=== PATIENT | female | born 1965 | race Caucasian/White ===

== ENCOUNTER → 2016-03-23 | Outpatient (CLI) | payer BC ==
--- NOTE | 2016-03-24 22:27 | MR ---
EXAMINATION TYPE: MR cervical spine wo con DATE OF EXAM: 03/23/2016 3:44 PM COMPARISON: NONE HISTORY: 50-year-old female with radiculopathy of the cervical region. TECHNIQUE: Multiplanar, multisequence images of the cervical spine were acquired. FINDINGS: No craniocervical junction abnormality, predental space widening, or prevertebral soft tissue swellin g. There is reversal of the normal cervical lordosis but with preserved alignment. No suspicious bone marrow replacement. Multilevel mild degenerative disc disease characterized by disc desiccation and disc bulging. Some ligamentum flavum thickening seen at C6-C7 and scattered facet degenerative change. At C2-C3, no spinal canal or neural foraminal stenosis. At C3-C4, mild right paracentral disc bulge with mild facet arthropathy but no spinal canal or neurof oraminal stenosis. At C4-C5, there is broad-based disc bulge with a left-sided uncovertebral joint arthropathy and bilat eral facet degenerative change. There is prominent abutment and slight indentation of the ventral cor d but without significant spinal canal or neuroforaminal stenosis. At C5-C6, there is broad-based disc bulge with left-sided uncovertebral joint and bilateral facet art hropathy. Changes result in mild left neuroforaminal stenosis. There is minimal ventral indentation o f the thecal sac without significant spinal canal stenosis. At C6/C7, there is left paracentral broad-based disc protrusion with a bilateral facet degenerative c hange. Changes mildly narrow the left neuroforamen. Additional ligamentum flavum thickening. There is dorsal and ventral impression on the thecal sac without significant spinal canal stenosis. At C7-T1, there is facet degenerative change without significant spinal canal or neuroforaminal steno sis. Normal course and signal intensity of the cervical cord. No prevertebral or paravertebral soft tissue abnormality seen. IMPRESSION: 1. Mild multilevel degenerative disc disease and scattered facet arthropathy. 2. Reversal of the normal cervical lordosis. 3. Largest disc bulge at C4-C5 abuts and mildly indents the ventral cervical cord but does not cause any significant spinal canal stenosis or cord compression. 4. Additional disc bulges indenting the thecal sac but again, not causing any significant spinal steve l stenosis. 5. Mild left-sided neural foraminal stenoses at C5-C6 and C6-C7. No high-grade foraminal compromise s een.
== END | disposition home or self-care (01) ==
LOC: RADMRIMAIN 15:14
PROVIDERS: ATTEND Family Medicine
DX: M99.71 Connective tissue and disc stenosis of intervertebral foramina of cervical region (principal); M50.121 Cervical disc disorder at C4-C5 level with radiculopathy; M50.10 Cervical disc disorder with radiculopathy, unspecified cervical region; M46.92 Unspecified inflammatory spondylopathy, cervical region
CPT/HCPCS: 72141

== ENCOUNTER → 2016-04-20 | Outpatient (CLI) | payer BC ==
[2016-04-20 15:16] LABS: Basophils % (A) 0 %; CH 30.1; CHCM 33.1; Eosinophils # (A) 0.1 k/uL (0-0.7); Eosinophils % (A) 2 %; HCT 35.7 % (34.0-46.0); HDW 2.88; HGB 12.1 gm/dL (11.4-16.0); Luc # (Auto) 0.16; Luc % (Auto) 3; Lymphocytes # (A) 2.1 k/uL (1.0-4.8); Lymphocytes % (A) 35 %; MCH 30.9 pg (25.0-35.0); MCHC 33.8 g/dL (31.0-37.0); MCV 91.4 fL (80.0-100.0); Mean Platelet Volume 7.4; Monocytes # (A) 0.3 k/uL (0-1.0); Monocytes % (A) 6 %; Neutrophils # (A) 3.2 k/uL (1.3-7.7); Neutrophils % (A) 54 %; RBC 3.91 m/uL (3.80-5.40); RDW 13.8 % (11.5-15.5); WBC 5.8 k/uL (3.8-10.6); WBC (Perox) 6.12
== END | disposition home or self-care (01) ==
LOC: LABPAT 14:48
PROVIDERS: ATTEND Obstetrics & Gynecology
DX: Z01.812 Encounter for preprocedural laboratory examination (principal)
CPT/HCPCS: 36415; 85025

== ENCOUNTER 2016-04-29 06:25 | Day surgery (SDC) | payer BC ==
[2016-04-26 13:02] VITALS: BMI 29.5
--- NOTE | 2016-04-28 17:00 | P.HPOB ---
History of Present Illness H&P Date: 04/28/16 Chief Complaint: Dysfunctional uterine bleeding and abnormal endometrial thickening. This patient is a pleasant 50-year-old 2 para 2 female who initially presented to me in February in referral from Dr. Soto for abnormal menstrual bleeding. Patient states that she had bleeding since September of last year sometimes on a daily basis. At the time she had not had an exam or Pap smear in about 7 years. I did order an ultrasound which showed the endometrium to be thickened at 1.5 cm and somewhat heterogeneous. Patient now presents for hysteroscopy and D&C for further evaluation. She and I did discuss possible endometrial ablation however she was undecided at the time of this dictation as to whether she wanted that procedure. Patient now presents for hysteroscopy D& C and possible endometrial ablation. Review of Systems Constitutional: Denies chills, Denies fever Eyes: denies blurred vision, denies pain Ears, nose, mouth and throat: Denies headache, Denies sore throat Cardiovascular: Denies chest pain, Denies shortness of breath Respiratory: Denies cough Gastrointestinal: Denies abdominal pain, Denies diarrhea, Denies nausea, Denies vomiting Genitourinary: Reports as per HPI, Reports abnormal vaginal bleeding, Denies dysuria, Denies hematuria Menstruation: Reports as per HPI Musculoskeletal: Denies myalgias Neurological: Denies numbness, Denies weakness Psychiatric: Denies anxiety, Denies depression Past Medical History Additional Past Medical History / Comment(s): Vaginal bleeding since September 2015, otherwise states no other medical problems. History of Any Multi-Drug Resistant Organisms: None Reported Additional Past Surgical History / Comment(s): [place] teeth Additional Past Anesthesia/Blood Transfusion Reaction / Comment(s): Has only had wisdom teeth removed. Past Psychological History: No Psychological Hx Reported Smoking Status: Former smoker Past Alcohol Use History: Rare Additional Past Alcohol Use History / Comment(s): Quit smoking 29 years go. Past Drug Use History: None Reported - Past Family History Mother Family Medical History: No Reported History Medications and Allergies Home Medications Medication Instructions Recorded Confirmed Type Ascorbic Acid/Multivit-Min 1 dose PO DAILY 04/26/16 04/26/16 History [Emergen-C 1,000 mg Variety Pk] Allergies Allergy/AdvReac Type Severity Reaction Status Date / Time No Known Allergies Allergy Verified 04/26/16 13:09 Exam - OBG Physical Exam Abdomen: bowel sounds normal, no diffuse tenderness, no bruit present, no guarding noted, no hepatomegaly, no splenomegaly, no mass Vulva: both: normal Vagina: normal moisture Cervix: no lesion, no discharge Uterus: normal size, normal contour Adnexa: both: normal Results Transvaginal ultrasound was done on March 09 which showed the endometrium to be 1.5 cm and heterogeneous. There was a small 1.3 cm fibroid. Assessment and Plan (1) Dysfunctional uterine bleeding Narrative/Plan: This is a pleasant 50-year-old 2 para 2 female with dysfunctional uterine bleeding and endometrial thickening on ultrasound. Plan is hysteroscopy and D&C for further evaluation. Patient and I did discuss possible endometrial ablation in the office however was undecided at the time of of this dictation as to whether she would want that done and she told me she would decide the morning of surgery. If the patient desires we will proceed with NovaSure endometrial ablation as well. Patient does understand the risks of the surgeries including risks of infection, bleeding, possible uterine perforation. Patient also understands if we do an endometrial ablation there is a risk of thermal injury. All the patient's questions are answered and a written consent is obtained. Status: Acute
[~2016-04-29 06:25] MED LIST: DEXAMETHASONE SOD PHOSPHATE 10 MG/ML 1 ML VIAL IV ONE; HYDROmorphone 1 MG/ML 1 ML SYRINGE IVP PRN; LACTATED RINGERS 1,000 ML IV SCH; MIDAZOLAM 2 MG/2 ML VIAL IV PRN; ONDANSETRON 4 MG/2 ML VIAL IVP ONE; Pre Op ABX Message 1 EACH MISC MISCELLANE ONE
[2016-04-29] MEDS ORDERED: LIDOCAINE 1% 20 ML VIAL (10MG/ML) FOR IV START SQ ONE (06:50)
[2016-04-29] MEDS ORDERED: LIDOCAINE 1% INJ 10MG/ML (20 ML MDV) ONE (07:19)
[2016-04-29] MEDS ORDERED: fentaNYL (PF) 50 MCG/ML 2 ML AMP ONE (07:19)
[2016-04-29] MEDS ORDERED: KETOROLAC 30 MG/ML 1 ML VIAL ONE (07:19)
[2016-04-29] MEDS ORDERED: MIDAZOLAM 2 MG/2 ML VIAL ONE (07:19)
[2016-04-29] MEDS ORDERED: PROPOFOL 10 MG/ML 20 ML VIAL IV ONE (07:19)
--- NOTE | 2016-04-29 07:19 | P.PN ---
Progress Note - Text I discussed with the patient preoperatively about having an endometrial ablation and she states at this time she just wants to proceed with a hysterscopy and D&C, NO ABLATION. She understands if necessary she can come back at a later date for this procedure (ablation) but of course would require another surgery.
[2016-04-29 07:48] VITALS: TEMP 97.2
--- NOTE | 2016-04-29 07:48 | P.PCN ---
Date of Procedure: 04/29/16 Preoperative Diagnosis: Dysfunctional uterine bleeding and endometrial thickening on ultrasound Postoperative Diagnosis: Same Procedure(s) Performed: #1: Hysteroscopy. #2: Dilation and curettage. Anesthesia: MAC Surgeon: Reece Snell Estimated Blood Loss (ml): 10 Urine output (ml): 10 Pathology: other (Uterine curettings) Condition: stable Disposition: PACU Indications for Procedure: Please see dictated H&P for intimate details of this patient's admission. Brief summary this is a pleasant 50-year-old female with dysfunctional uterine bleeding since September of this last year. Patient's evaluation included a pelvic ultrasound which showed endometrial thickening to 1.5 cm. Patient and I discussed the need for endometrial sampling and she now presents for hysteroscopy D&C. Patient I did discuss prior to surgery about an endometrial ablation however she decided not to do this at this time.'s this surgery and risks including risks of infection, bleeding, possible uterine perforation. All the patient's questions are answered written consent is obtained. Operative Findings: This patient had a normal-appearing endometrial cavity. There was no evidence of any polyps, fibroids, and/or growths. Description of Procedure: This patient is taken to the operating room where she is laid in the supine position. She subsequent has general mask anesthesia without incident. With an adequate level of anesthesia she's placed in dorsal lithotomy position. She has a vaginal perineal prep and drape. Examination under anesthesia shows a mid position uterus of normal size. I placed a weighted speculum the posterior vagina. The bladder is drained for 10 mL of clear urine. I then place an Allis clamp on the anterior lip of the cervix. The uterus is then sounded to 8 cm. I gently dilate the cervix to allow the hysteroscope into the uterine cavity. Using saline solution hysteroscopy is performed. Uterine cavity appears normal without evidence of polyps fibroids or other growths. With this done the hysteroscope was removed. I then gently dilate the cervix more to allow a curette easily and uterine cavity. A vigorous but gentle 4 quadrant curettage is then done. This tissue is sent off to pathology. This completed the procedure is terminated. The Allis clamp and weighted speculums removed. All counts are correct 3. There are no complications. Patient is taken to recovery room in satisfactory condition.
[2016-04-29 08:28] VITALS: RESP 16
[2016-04-29 09:06] VITALS: BP 98/69; PULSE 66
== END 2016-04-29 09:27 | disposition home or self-care (01) ==
LOC: OR 06:25
PROVIDERS: ATTEND Obstetrics & Gynecology
DX: N93.8 Other specified abnormal uterine and vaginal bleeding (principal); R93.8 Abnormal findings on diagnostic imaging of other specified body structures; Z87.891 Personal history of nicotine dependence
CPT/HCPCS: 58558; 81025; 88305; J2250; J1100; J2405; J2001; J3010; J1885; J2704

== ENCOUNTER → 2018-10-05 | Outpatient (CLI) | payer BC ==
--- NOTE | 2018-10-05 08:14 | CT ---
EXAMINATION TYPE: CT sinus wo con DATE OF EXAM: 10/05/2018 COMPARISON: NONE HISTORY: Acute Sinusitis per order. Headaches for years per patient. CT DLP: 572 mGycm. Automated Exposure Control for Dose Reduction was Utilized. TECHNIQUE: CT scan of the sinuses is performed without contrast, axial images are obtained, coronal r eformatted images are also reviewed. FINDINGS: The paranasal sinuses including the frontal, ethmoid, sphenoid, and maxillary sinuses bila terally are well-aerated without abnormal opacification. The ostiomeatal complex is patent bilateral ly on coronal image 29. Visualized portion of mastoid air cells show no abnormal opacification. The globes are intact bilate rally. Visualized portion of brain parenchyma is unremarkable. IMPRESSION: The sinuses are clear and the ostiomeatal complex is patent bilaterally.
== END | disposition home or self-care (01) ==
LOC: RADCTMAIN 07:25
PROVIDERS: ATTEND Family Medicine
DX: J01.90 Acute sinusitis, unspecified (principal)
CPT/HCPCS: 70486

== ENCOUNTER → 2018-10-24 | Outpatient (CLI) | payer BC ==
--- NOTE | 2018-10-26 10:49 | MM ---
Reason for exam: screening (asymptomatic). Last mammogram was performed 2 years and 8 months ago. History: Took hormonal contraceptives for 4 years. Physical Findings: A clinical breast exam by your physician is recommended on an annual basis and results should be correlated with mammographic findings. MG 3D Screening Mammo W/Cad Bilateral CC and MLO view(s) were taken. Prior study comparison: February 09, 2016, bilateral MG screening mammo w CAD. March 27, 2009, right breast mammogram dig work up. The breast tissue is heterogeneously dense. This may lower the sensitivity of mammography. Left upper outer quadrant middle depth distortion and right central middle posterior depth asymmetry. ASSESSMENT: Incomplete: need additional imaging evaluation, BI-RAD 0 RECOMMENDATION: Special view mammogram of both breasts. If lesion persists on supplemental views, image directed ultrasound is recommended. [facility] will attempt to contact patient to return for supplemental views and ultrasound if indicated.
== END | disposition home or self-care (01) ==
LOC: RADMAMWWP 15:40
PROVIDERS: ATTEND Family Medicine
DX: Z12.31 Encounter for screening mammogram for malignant neoplasm of breast (principal)
CPT/HCPCS: 77063; 77067

== ENCOUNTER → 2018-11-08 | Outpatient (CLI) | payer BC ==
--- NOTE | 2018-11-09 14:58 | MM ---
Reason for exam: additional evaluation requested from abnormal screening. Last mammogram was performed less than 1 month ago. History: Took hormonal contraceptives for 4 years. Physical Findings: Nurse did not find any significant physical abnormalities on exam. MG 3D Work Up W/Cad MICHAEL Bilateral spot compression CC, spot compression MLO, and LM view(s) were taken. Prior study comparison: October 24, 2018, bilateral MG 3d screening mammo w/cad. February 09, 2016, bilateral MG screening mammo w CAD. The breast tissue is heterogeneously dense. This may lower the sensitivity of mammography. Focal asymmetry left MLO compression, not on ML. This finding is changed when compared with previous exams. These results were verbally communicated with the patient and result sheet given to the patient on 11/08/18. ASSESSMENT: Incomplete: need additional imaging evaluation, BI-RAD 0 RECOMMENDATION: Ultrasound of the left breast.
--- NOTE | 2018-11-09 15:00 | USB ---
Reason for exam: additional evaluation requested from abnormal screening. History: Took hormonal contraceptives for 4 years. US Breast Workup Limited LT Left limited breast ultrasound including focal area of concern, retroareolar and axilla demonstrates a 5 x 2 x 6mm oval, cystic lesion at 1 o'clock and ill defined distortion with shadowing at 1 o'clock for which a biopsy is recommended. These results were verbally communicated with the patient and result sheet given to the patient on 11/08/18. ASSESSMENT: Suspicious, BI-RAD 4 RECOMMENDATION: Ultrasound core biopsy of the left breast. Called and left message for Dr. Martinez with mammographic findings. PRELIMINARY REPORT CALLED AND FAXED TO DR. MARTINEZ ON 11/09/18.
== END | disposition home or self-care (01) ==
LOC: RADMAMWWP 14:57
PROVIDERS: ATTEND Family Medicine
DX: R92.8 Other abnormal and inconclusive findings on diagnostic imaging of breast (principal)
CPT/HCPCS: 77062; 77066

== ENCOUNTER → 2018-12-15 | Outpatient (CLI) | payer BC ==
[2018-12-15 14:18] VITALS: BP 124/79; PULSE 66; RESP 18; TEMP 98; BMI 30.3
--- NOTE | 2018-12-15 14:33 | P.GSHP ---
History of Present Illness H&P Date: 12/15/18 Chief Complaint: Abnormal mammogram left breast Margaux is a 53-year-old white female who underwent routine screening mammogram was noted to have an area of distortion in the upper outer quadrant region. [place] [id number] an ultrasound of the left breast which revealed a 5 x 2 mm cystic lesion at 1:00 and an ill-defined distortion with shadowing at 1:00 for which a biopsy was recommended. The patient does not feel any lumps or masses in her breast herself. She has not noted any nipple discharge or skin changes. She is not complaining of any breast pain. She has not had any biopsies or surgery of her breasts. Family history: none Hormonal history: Menarche:15 , bresat fed: none, age at first :23 menopause: 52 BCP: 2 years hormones: none Past surgical history: 1. D&C 2. wisdom teeth Medical HIstory: none Social history: Stopped 30 years ago used to smoke 1 pack per week for 4 years Alcohol: Negative Drugs:none - Constitutional Constitutional: Denies chills, Denies fever - EENT Eyes: denies blurred vision, denies pain Ears: deny: decreased hearing, tinnitus Ears, nose, mouth and throat: Denies headache, Denies sore throat - Breasts Breasts: bilateral: as per HPI - Cardiovascular Cardiovascular: Denies chest pain, Denies shortness of breath - Respiratory Respiratory: Denies cough, Denies 7 - Gastrointestinal Gastrointestinal: Denies abdominal pain, Denies diarrhea, Denies nausea, Denies vomiting - Genitourinary (Female) Genitourinary: Denies dysuria, Denies hematuria - Menstruation Menstruation: Reports postmenopausal - Musculoskeletal Musculoskeletal: Denies myalgias - Integumentary Integumentary: Denies pruritus, Denies rash - Neurological Neurological: Denies numbness, Denies weakness - Psychiatric Psychiatric: Denies anxiety, Denies depression - Endocrine Endocrine: Denies fatigue, Denies weight change - Hematologic/Lymphatic Comment: none - Allergic/Immunologic Allergic/Immunologic: Reports seasonal allergies Past Medical History Additional Past Medical History / Comment(s): seasonal allergies History of Any Multi-Drug Resistant Organisms: None Reported Additional Past Surgical History / Comment(s): [place] teeth; d&c approx: 2016; Additional Past Anesthesia/Blood Transfusion Reaction / Comment(s): Has only had wisdom teeth removed. Past Psychological History: No Psychological Hx Reported Smoking Status: Former smoker Past Alcohol Use History: None Reported Additional Past Alcohol Use History / Comment(s): quit smoking 1988 Past Drug Use History: None Reported - Past Family History Mother Family Medical History: No Reported History Medications and Allergies Home Medications Medication Instructions Recorded Confirmed Type Fluticasone Nasal [place] [Flonase 1 spray NASAL DAILY 12/06/18 12/15/18 History Nasal [place]] Loratadine [Claritin] 10 mg PO DAILY 12/06/18 12/15/18 History Montelukast Sodium [Singulair] 10 mg PO HS 12/06/18 12/15/18 History Allergies Allergy/AdvReac Type Severity Reaction Status Date / Time No Known Allergies Allergy Verified 12/06/18 12:55 Surgical - Exam Vital Signs Temp Pulse Resp BP Pulse Ox 98.0 F 66 18 124/79 96 12/15/18 14:13 12/15/18 14:13 12/15/18 14:13 12/15/18 14:13 12/15/18 14:13 BMI 30.3 - General well developed, well nourished, no distress - Eyes normal ocular movement - ENT no hearing loss, no congestion - Neck no masses, trachea midline - Respiratory normal respiratory effort, clear to auscultation - Cardiovascular Rhythm: regular Heart Sounds: normal: S1, S2 - Abdomen Abdomen: soft, non tender, no guarding, no rigid, no rebound - Integumentary normal turgor Patient had recent skin biopsy left knee areas and 2 areas on her forehead which he froze awaiting results of biopsy - Neurologic no disoriented, no combative - Musculoskeletal normal gait, normal posture - Psychiatric oriented to time, oriented to person, oriented to place, speech is normal, memory intact breast exam: S: Multiple positional exam fibrocystic changes no dominant masses or nodules of concern Right axilla: No adenopathy of concern {: Multiple positional exam slightly increased fullness upper-outer quadrant area near 1:00, no dominant masses or nodules of concern otherwise fibrocystic changes Left axilla: No adenopathy of concern Breast size: 40DD Results Mammogram and ultrasound results reviewed Assessment and Plan Assessment: Impression: 1. Mammogram abnormality left breast 2. Ultrasound abnormality left breast 3. Fibrocystic breast changes 4. Slight increased probable changed left breast upper outer quadrant. 5. Patient has had a recent skin biopsy and is awaiting results this was done a [employer] office Risk and benefits of procedure discussed with patient and she wishes to proceed. Plan: 1. Ultrasound-guided core biopsy left breast 2. Follow up 1 week after biopsy 3. Patient is awaiting results of skin biopsy in [employer] office and we'll follow with him with respect to this Cc: Dr. Martinez
== END | disposition home or self-care (01) ==
LOC: WWCWWP 13:58
PROVIDERS: ATTEND Surgery
DX: Z53.9 Procedure and treatment not carried out, unspecified reason (principal)

== ENCOUNTER → 2018-12-22 | Day surgery (SDC) | payer BC ==
[2018-12-22 10:56] VITALS: RESP 16; BMI 32.8
[2018-12-22 11:59] VITALS: BP 129/79; PULSE 66; TEMP 97.8
--- NOTE | 2018-12-22 12:24 | USB ---
EXAMINATION TYPE: US biopsy breast VAD LT, MG diagnostic mammo LT wo CAD DATE OF EXAM: 12/22/2018 CLINICAL HISTORY: R92.8 Abnormal Mammogram. TECHNIQUE: Ultrasound guided core biopsy of left breast. COMPARISON: Left breast ultrasound dated 11/08/2018 FINDINGS: The procedure of ultrasound guided core biopsy was explained to the patient. Benefits, alternatives, and risks were discussed. An informed consent was then obtained. Preprocedural timeout was performed. The patient was placed in supine positioning for imaging and for the procedure. The overlying skin was prepped and draped in usual sterile fashion. 10 cc of 1% lidocaine was used as anesthetic into the skin and subcutaneous tissue up to a ill-defined area of shadowing at 1:00 of the left breast measuring approximately 0.6 x 0.8 cm on today's exam. Under ultrasound guidance, a 12-gauge vacuum assisted biopsy gun device was used to obtain 6 core samples. Following this, a ribbon-shaped biopsy marker was left at the site of biopsy. Postprocedure mammogram demonstrates appropriate biopsy marker placement relative to the biopsied site however biopsy marker is at the periphery of the distortion on the CC view and anterior to the distortion seen on the prior ML view. 3-D biopsy may be necessary pending results of this biopsy. The patient tolerated the procedure well without any immediate complication. The patient was kept in the radiology department for short stay after the procedure and then discharged home in stable condition. IMPRESSION: Successful, uncomplicated ultrasound guided core biopsy of a shadowing area at the 1:00 position of the left breast, full pathology results to follow. Note that the there is a larger area of distortion on mammography that correlates with the biopsied area on one view only. Additional 3-D stereotactic core needle biopsy may be necessary in addition to this biopsy pending biopsy results. Pathology Results: Benign LEFT BREAST AT 1:00, ULTRASOUND GUIDED CORE BIOPSY: Fibrocystic changes including dense stromal fibrosis and small cysts. Recommendation Repeat procedure. Surgical consultation of the left breast. Stereotactic 3D biopsy recommended (clip discordant with larger architectural distortion). MTDD
== END ==
LOC: RADUSWWP 10:23
PROVIDERS: ATTEND Surgery
DX: N60.12 Diffuse cystic mastopathy of left breast (principal)
CPT/HCPCS: 88305; 77065; 19083; A4648; J2001

== ENCOUNTER → 2018-12-28 | Outpatient (CLI) | payer BC ==
[2018-12-28 08:54] VITALS: BP 132/91; PULSE 70; RESP 18; TEMP 97.6; BMI 31.8
--- NOTE | 2018-12-28 09:32 | P.PN ---
Subjective Progress Note Date: 12/28/18 Principal diagnosis: Stereotactic core biopsy left breast results Margaux is a 53-year-old white female who is status post ultrasound-guided core biopsy of an area of concern in the left breast on [id number]. The pathology revealed fibrocystic changes including dense stromal fibrosis and small cysts. There was concern that this was not concordant with the radiographic findings. After review with Dr. Estes it was recommended the patient undergo a 3-D stereotactic core biopsy of the left breast. Postprocedure the patient has done well. She has some mild ecchymosis at the site and some mild tenderness. Objective - Vital Signs Vital signs: Vital Signs Temp 97.6 F 12/28/18 08:52 Pulse 70 12/28/18 08:52 Resp 18 12/28/18 08:52 BP 132/91 12/28/18 08:52 Pulse Ox 98 12/28/18 08:52 Intake & Output 12/27/18 12/28/18 12/28/18 18:59 06:59 18:59 Weight 81.647 kg - Exam BMI 31.9 - Constitutional General appearance: Present: obese - EENT Eyes: Present: EOMI ENT: Present: hearing grossly normal - Neck Neck: Present: normal ROM - Respiratory Respiratory: bilateral: CTA - Cardiovascular Rhythm: regular Heart sounds: normal: S1, S2 - Integumentary Integumentary Comment(s): Mild ecchymosis at biopsy site Integumentary: Present: normal turgor - Musculoskeletal Musculoskeletal: Present: gait normal - Psychiatric Psychiatric: Present: A&O x's 3, appropriate affect, intact judgment & insight - Additional findings Additional findings: Left breast "biopsy site mild ecchymosis, no hematoma Assessment and Plan Assessment: Impression: 1. Mammographic abnormality left breast 2. Ultrasound abnormality left breast/ core biopsy done 3. Fibrocystic breast changes 4. Slight ecchymosis at core biopsy site/fibrocystic change 5. Biopsy results discordant with radiographic findings 6. nose lesion basal cell cancer Plan: 1. Stereotactic core biopsy left breast 2. Follow up 1 week after biopsy 3. 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 Martinez
== END | disposition home or self-care (01) ==
LOC: WWCWWP 08:41
PROVIDERS: ATTEND Surgery
DX: Z53.9 Procedure and treatment not carried out, unspecified reason (principal)

== ENCOUNTER → 2019-01-26 | Outpatient (CLI) | payer BC ==
[2019-01-26 12:51] VITALS: BP 143/83; PULSE 71; RESP 18; TEMP 97.4; BMI 32.1
--- NOTE | 2019-01-26 13:02 | P.PN ---
Subjective Progress Note Date: 01/26/19 Principal diagnosis: stero biopsy results Margaux is a 53 year old white female status post 3 D stero biopsy of the left breast. The pathology from this was benign. The actual x-rays were reviewed with the radiologist Dr. Colmenares who cannot concur that this is the actual area sampled that showed the architectural distortion. After review with her she is recommending a repeat 3-D stereo x-ray of the left breast to confirm that the area sampled was indeed the area of architectural distortion. This was discussed with the patient the patient is very distraught has opted not to have further treatment at this facility. She has requested that her sudies be provided to her. She is chosen not to receive any further diagnostic studies or treatment at this facility. Objective - Constitutional General appearance: Present: average body habitus - Psychiatric Psychiatric Comment(s): very anxious skeptical regarding treatment - Additional findings Additional findings: skin left breast incision site clean and dry no evidence of infection Assessment and Plan Assessment: Impression: 1. Radiographic abnormality left breast, ultrasound core biopsy and 3-D stereo biopsy done of the past however after review with the radiologist there is some question as to whether the actual area of distortion was sampled was recommended a repeat 3-D mammogram be performed to confirm that the correct area was sampled Patient is very anxious and distraught and refused any further evaluation. The patient requested her studies and has left. Plan: 1. I will notify primary care doctor's patient's decision CC: Dr. Martinez
--- NOTE | 2019-01-26 16:50 | P.PN ---
Progress Note - Text Progress Note Date: 01/26/19 I have discussed Margaux Osorio's case with Anna Marie Smith PA from Dr. Martinez's office. She understands our recommendation for a repeat left 3D mammogram to assure the location in the breast where the biopsy was preformed and was benign is concordant with the original mammographic findings. She will be in contact with the patient.
== END ==
LOC: WWCWWP 12:45
PROVIDERS: ATTEND Surgery
DX: Z53.9 Procedure and treatment not carried out, unspecified reason (principal)

== ENCOUNTER → 2019-01-31 | Outpatient (CLI) | payer BC ==
--- NOTE | 2019-02-01 08:19 | MM ---
Reason for exam: additional evaluation requested from abnormal screening. Last mammogram was performed 1 month ago. History: Benign US biopsy breast VAD LT of the left breast, December 22, 2018. Took hormonal contraceptives for 4 years. Physical Findings: Patient refused breast exam. MG 3D Work Up W/Cad LT CC and LM view(s) were taken of the left breast. Prior study comparison: December 22, 2018, left breast MG diagnostic mammo LT wo CAD. November 08, 2018, bilateral MG 3d work up w/cad MICHAEL. The breast tissue is heterogeneously dense. This may lower the sensitivity of mammography. Biopsy marker is appropriately placed on CC and at the periphery of the distortion on LM. These results were verbally communicated with the patient and result sheet given to the patient on 01/31/19. ASSESSMENT: Benign, BI-RAD 2 RECOMMENDATION: Breast MRI of the left breast. As the pathology diagnosis is not entirely concordant with mammographic findings.
== END | disposition home or self-care (01) ==
LOC: RADMAMWWP 16:07
PROVIDERS: ATTEND Family Medicine
DX: R92.8 Other abnormal and inconclusive findings on diagnostic imaging of breast (principal)
CPT/HCPCS: 77061; 77065

== ENCOUNTER → 2023-01-20 | Outpatient (CLI) | payer BC ==
--- NOTE | 2023-01-21 08:13 | CT ---
EXAMINATION TYPE: CT soft tissue neck w con DATE OF EXAM: 01/20/2023 COMPARISON: None HISTORY: Enlarged lymphnodes CT DLP: 349.5 mGycm CONTRAST: Patient injected with 100 cc mL of Isovue 300. TECHNIQUE: Axial images at 3 mm thick sections. Reconstructed images in the coronal plane and sagitt al plane are reviewed. FINDINGS: Limited CT sections are obtained the lung apices. The lung apices appear clear. CT neck: The torus tubarius and fossa of Rosenmuller are normal. Supervisor Lace Tearing spaces are normal. Para nasal sinuses and mastoid air cells are clear. Parotid glands appear normal and symmetrical. Submandibular glands, are normal. Parapharyngeal spac es are normal. There is a 1.1 cm right jugulodigastric lymph node. There is a 0.8 cm jugulodigastric node on the left. This is not enlarged by CT criteria. Additional s mall cervical lymph nodes are present bilaterally The hypopharynx appears within normal limits. Vocal cord level appear symmetrical. Thyroid as visualized is normal. There is a cervical kyphosis present. Anterior vertebral body spurring is present C5. Prevertebral sp seda is normal. IMPRESSION: 1. Shoddy lymphadenopathy through the cervical lymph nodes bilaterally. 2. There is a solitary 1.1 cm enlarged right jugulodigastric lymph node.
== END | disposition home or self-care (01) ==
LOC: RADCTMAIN 16:39
PROVIDERS: ATTEND Otolaryngology
DX: R59.0 Localized enlarged lymph nodes (principal)
CPT/HCPCS: 70491; Q9967